=== PATIENT | male | born 1955 | race Caucasian/White ===

== ENCOUNTER 2020-11-15 10:06 | Inpatient (IN) | payer OTHER ==
[2020-11-15] MEDS ORDERED: VANCOMYCIN 1 GM in D5W (PRE-DOCKED) 1,000 MG/250 ML IVPB ONE (11:50)
[2020-11-15] MEDS ORDERED: PIPERACILLIN/TAZOB 4.5 GM 4.5 GM in DEXTROSE 5%-WATER 100 ML IVPB ONE (11:50)
[2020-11-15] MEDS ORDERED: PIPERACILLIN/TAZOB 4.5 GM 4.5 GM/100 ML BAG IVPB ONE (11:54)
[2020-11-15] MEDS ORDERED: VANCOMYCIN 1 GRAM (PRE-DOCKED) 1,000 MG/250 ML BAG IVPB ONE (11:54)
[2020-11-15 11:57] LABS: BASO % 0.9 % (0-2.0); EOS % 1.4 % (0-4.5); HEMATOCRIT 33.3 % (35.4-49); HEMOGLOBIN 10.4 GM/dL (11.7-16.9); LYMPH % 6.9 % (8-40); MCH 20.9 pg (25.7-33.7); MCHC 31.4 g/dl (32.0-35.9); MEAN CELL VOLUME 66.5 fl (80-96); MEAN PLT VOLUME 8.5 fl (7.5-11.1); MONO % 10.8 % (3.8-10.2); PLATELET COUNT 165 K/MM3 (134-434); RDW 21.5 % (11.9-15.9); WHITE BLOOD COUNT 4.7 K/mm3 (4.0-10.0)
[2020-11-15 12:02] LABS: INR 1.24 (0.83-1.09); PROTHROMBIN TIME (PATIENT) 15.2 SEC (9.7-13.0)
[2020-11-15 12:17] LABS: CHLORIDE 99 mmol/L (98-107); SODIUM 134 mmol/L (136-145)
[2020-11-15 12:19] LABS: BLOOD UREA NITROGEN 20.7 mg/dL (7-18); CALCIUM 9.4 mg/dL (8.5-10.1)
[2020-11-15 12:20] LABS: ALBUMIN 2.8 g/dl (3.4-5.0); CO2 30 mmol/L (21-32); GLUCOSE,RANDOM 106 mg/dL (74-106)
[2020-11-15 12:23] LABS: SGOT/AST 96 U/L (15-37); SGPT/ALT 26 U/L (13-61)
[2020-11-15 12:24] LABS: CREATININE 0.9 mg/dL (0.55-1.3)
[2020-11-15 12:25] LABS: BILIRUBIN,TOTAL 0.4 mg/dL (0.2-1); TOT PROT 8.2 g/dl (6.4-8.2)
[2020-11-15 12:26] LABS: ALK PHOS 217 U/L (45-117)
[2020-11-15 12:47] LABS: ANION GAP 5 MMOL/L (8-16)
[2020-11-15 12:59] LABS: ANISOCYTOSIS 1+; MACROCYTOSIS 1+; OVALOCYTE 1+; PLATELET ESTIMATE NORMAL; TEAR DROP CELLS 1+
[2020-11-15] MEDS ORDERED: SODIUM CHLORIDE NASAL SPRAY 44 ML BOTTLE NS PRN (17:31)
[2020-11-15] MEDS ORDERED: oxyCODONE HCL 10 MG SUSTAINED ACTING TABLET PO PRN (17:31)
[2020-11-15] MEDS ORDERED: HEPARIN NA (PORCINE) 5,000 UNITS/ML 1ML VIAL ONE (18:37)
[2020-11-15] MEDS ORDERED: PIPERACILLIN/TAZOB 3.375 GM 3.375 GM/50 ML BAG IVPB ONE (18:38)
[2020-11-15] MEDS: PIPERACILLIN/TAZOB 3.375 GM 3.375 GM in DEXTROSE 5%-WATER - 50 ML IVPB SCH (18:46)
[2020-11-15] MEDS: HEPARIN NA (PORCINE) 5,000 UNITS/ML 1ML VIAL SQ SCH ×2 (18:46→22:14)
[2020-11-15] MEDS ORDERED: oxyCODONE HCL 10 MG SUSTAINED ACTING TABLET ONE (18:47)
[2020-11-15] MEDS: LENVATINIB MESYLATE PO SCH (21:15)
[2020-11-15] MEDS: GABAPENTIN 300 MG CAPSULE PO SCH (22:14)
[2020-11-15] MEDS: FUROSEMIDE 20 MG TABLET (FP) PO SCH (22:14)
[2020-11-15] MEDS: ATORVASTATIN CA 10 MG TABLET (FP) PO SCH (22:14)
[2020-11-15] MEDS ORDERED: morphine SO4 SUSTAINED ACTING 30 MG TABLET.SA PO PRN (22:20)
[2020-11-15 22:29] VITALS: BMI 28.3
[2020-11-15] MEDS: morphine SO4 SUSTAINED ACTING 30 MG TABLET.SA PO SCH (23:37)
[2020-11-16] MEDS ORDERED: PT OWN MED DRAWER 7, Y5N ONE (00:42)
[2020-11-16] MEDS: oxyCODONE HCL 5 MG TABLET PO PRN ×4 (01:09→19:57)
[2020-11-16] MEDS ORDERED: DEXTROSE 5%-WATER - 50 ML IVPB ONE ×4 (01:23→18:33)
[2020-11-16] MEDS ORDERED: PIPERACILLIN/TAZOBACTAM 3.375 GM VIAL IVPB ONE ×2 (01:23→10:39)
[2020-11-16] MEDS: PIPERACILLIN/TAZOB 3.375 GM 3.375 GM in DEXTROSE 5%-WATER - 50 ML IVPB SCH ×2 (01:53→10:42)
[2020-11-16] MEDS: GABAPENTIN 300 MG CAPSULE PO SCH ×3 (06:20→22:33)
[2020-11-16] MEDS: HEPARIN NA (PORCINE) 5,000 UNITS/ML 1ML VIAL SQ SCH ×3 (06:20→22:33)
[2020-11-16] MEDS: morphine SO4 SUSTAINED ACTING 30 MG TABLET.SA PO SCH ×2 (06:20→14:02)
[2020-11-16 08:35] LABS: BASO % 1.5 % (0-2.0); EOS % 2.8 % (0-4.5); HEMATOCRIT 33.5 % (35.4-49); HEMOGLOBIN 10.5 GM/dL (11.7-16.9); MCH 20.8 pg (25.7-33.7); MCHC 31.5 g/dl (32.0-35.9); MEAN CELL VOLUME 66.1 fl (80-96); MONO % 13.2 % (3.8-10.2); NEUT % 67.5 % (42.8-82.8); PLATELET COUNT 153 K/MM3 (134-434); RBC 5.06 M/mm3 (4.00-5.60); RDW 21.3 % (11.9-15.9); WHITE BLOOD COUNT 4.2 K/mm3 (4.0-10.0)
[2020-11-16 09:07] LABS: ALBUMIN 2.9 g/dl (3.4-5.0); BLOOD UREA NITROGEN 20.2 mg/dL (7-18); CALCIUM 9.2 mg/dL (8.5-10.1); MAGNESIUM 2.2 mg/dL (1.8-2.4)
[2020-11-16 09:12] LABS: BILIRUBIN,TOTAL 0.6 mg/dL (0.2-1); TOT PROT 8.3 g/dl (6.4-8.2)
[2020-11-16] MEDS ORDERED: ACETAMINOPHEN 325 MG TABLET (FP) PO PRN (09:14)
[2020-11-16] MEDS: metoPROLOL SUCCINATE 25 MG TAB.SR.24H (FP) PO SCH (10:43)
[2020-11-16] MEDS: FUROSEMIDE 20 MG TABLET (FP) PO SCH ×2 (10:43→22:33)
[2020-11-16] MEDS: ASPIRIN COATED 81 MG TABLET.EC PO SCH (10:43)
[2020-11-16] MEDS: LISINOPRIL 20 MG TABLET PO SCH (10:43)
[2020-11-16 11:34] LABS: ERYTHROCYTE SEDIMENTATION RATE 46 mm/hr (0-20)
[2020-11-16] MEDS ORDERED: ceFAZolin SODIUM 1 GM VIAL ONE ×2 (13:59→18:33)
[2020-11-16] MEDS: CEFAZOLIN 1 GM in DEXTROSE 5%-WATER - 1 GM/50 ML IVPB IVPB SCH ×2 (14:01→18:43)
[2020-11-16] MEDS: INSULIN SLIDING SCALE (NOVOLOG) 1 VIAL SQ SCH (16:57)
[2020-11-16] MEDS: INSULIN (NOVOLOG MIX 70/30) 100 UNITS/ML MDV SQ SCH (16:58)
[2020-11-16] MEDS ORDERED: PIPERACILLIN/TAZOB 3.375 GM 3.375 GM in DEXTROSE 5%-WATER - 50 ML IVPB SCH (18:00)
[2020-11-16] MEDS ORDERED: PNEUMOC 13-VAL CONJ-DIP CRM/PF 0.5 ML DISP.SYRIN IM ONE (19:00)
[2020-11-16] MEDS: LENVATINIB MESYLATE PO SCH (19:57)
[2020-11-16] MEDS ORDERED: morphine SO4 SUSTAINED ACTING 100 MG TABLET.SA PO SCH ×2 (22:00)
[2020-11-16] MEDS: ATORVASTATIN CA 10 MG TABLET (FP) PO SCH (22:33)
[2020-11-16] MEDS: morphine SO4 SUSTAINED ACTING 100 MG TABLET.SA PO SCH (22:34)
[2020-11-17] MEDS ORDERED: ceFAZolin SODIUM 1 GM VIAL ONE ×3 (02:20→17:31)
[2020-11-17] MEDS ORDERED: DEXTROSE 5%-WATER - 50 ML IVPB ONE ×3 (02:20→17:32)
[2020-11-17] MEDS: CEFAZOLIN 1 GM in DEXTROSE 5%-WATER - 1 GM/50 ML IVPB IVPB SCH ×3 (02:44→18:03)
[2020-11-17] MEDS ORDERED: INSULIN (NOVOLOG MIX 70/30) 100 UNITS/ML MDV SQ ONE ×2 (05:57→06:43)
[2020-11-17] MEDS: GABAPENTIN 300 MG CAPSULE PO SCH ×3 (06:18→22:00)
[2020-11-17] MEDS: morphine SO4 SUSTAINED ACTING 100 MG TABLET.SA PO SCH ×3 (06:19→22:04)
[2020-11-17] MEDS: HEPARIN NA (PORCINE) 5,000 UNITS/ML 1ML VIAL SQ SCH ×3 (06:20→22:05)
[2020-11-17] MEDS: INSULIN (NOVOLOG MIX 70/30) 100 UNITS/ML MDV SQ SCH ×2 (06:21→18:00)
[2020-11-17] MEDS: INSULIN SLIDING SCALE (NOVOLOG) 1 VIAL SQ SCH ×3 (06:21→16:28)
[2020-11-17 09:37] LABS: BASO % 1.5 % (0-2.0); EOS % 2.4 % (0-4.5); HEMATOCRIT 28.8 % (35.4-49); HEMOGLOBIN 9.1 GM/dL (11.7-16.9); LYMPH % 13.6 % (8-40); MCH 20.8 pg (25.7-33.7); MCHC 31.5 g/dl (32.0-35.9); MEAN CELL VOLUME 65.9 fl (80-96); MEAN PLT VOLUME 8.4 fl (7.5-11.1); MONO % 13.5 % (3.8-10.2); PLATELET COUNT 120 K/MM3 (134-434); RBC 4.37 M/mm3 (4.00-5.60); RDW 21.8 % (11.9-15.9)
[2020-11-17 10:08] LABS: CALCIUM 8.7 mg/dL (8.5-10.1)
[2020-11-17 10:10] LABS: ALBUMIN 2.5 g/dl (3.4-5.0); BLOOD UREA NITROGEN 22.1 mg/dL (7-18)
[2020-11-17] MEDS: ASPIRIN COATED 81 MG TABLET.EC PO SCH (10:12)
[2020-11-17] MEDS: FUROSEMIDE 20 MG TABLET (FP) PO SCH ×2 (10:12→22:05)
[2020-11-17 10:13] LABS: BILIRUBIN,TOTAL 0.5 mg/dL (0.2-1); CREATININE 0.9 mg/dL (0.55-1.3)
[2020-11-17] MEDS: metoPROLOL SUCCINATE 25 MG TAB.SR.24H (FP) PO SCH (10:13)
[2020-11-17] MEDS: LISINOPRIL 20 MG TABLET PO SCH (10:13)
[2020-11-17 10:15] LABS: TOT PROT 7.1 g/dl (6.4-8.2)
[2020-11-17] MEDS: oxyCODONE HCL 5 MG TABLET PO PRN ×2 (10:15→16:23)
[2020-11-17] MEDS: LENVATINIB MESYLATE PO SCH (19:08)
[2020-11-17] MEDS: ATORVASTATIN CA 10 MG TABLET (FP) PO SCH (22:00)
[2020-11-18] MEDS ORDERED: DEXTROSE 5%-WATER - 50 ML IVPB ONE ×3 (01:04→17:27)
[2020-11-18] MEDS ORDERED: ceFAZolin SODIUM 1 GM VIAL ONE ×3 (01:04→17:27)
[2020-11-18] MEDS: oxyCODONE HCL 5 MG TABLET PO PRN ×3 (01:06→16:26)
[2020-11-18] MEDS: CEFAZOLIN 1 GM in DEXTROSE 5%-WATER - 1 GM/50 ML IVPB IVPB SCH ×3 (01:11→17:29)
[2020-11-18] MEDS: morphine SO4 SUSTAINED ACTING 100 MG TABLET.SA PO SCH ×3 (05:57→21:54)
[2020-11-18] MEDS: HEPARIN NA (PORCINE) 5,000 UNITS/ML 1ML VIAL SQ SCH ×3 (05:57→21:54)
[2020-11-18] MEDS: GABAPENTIN 300 MG CAPSULE PO SCH ×3 (05:57→21:53)
[2020-11-18] MEDS: INSULIN (NOVOLOG MIX 70/30) 100 UNITS/ML MDV SQ SCH ×2 (06:04→17:13)
[2020-11-18] MEDS: INSULIN SLIDING SCALE (NOVOLOG) 1 VIAL SQ SCH ×3 (06:07→17:13)
[2020-11-18] MEDS: metoPROLOL SUCCINATE 25 MG TAB.SR.24H (FP) PO SCH (09:32)
[2020-11-18] MEDS: FUROSEMIDE 20 MG TABLET (FP) PO SCH ×2 (09:32→21:54)
[2020-11-18] MEDS: LISINOPRIL 20 MG TABLET PO SCH (09:32)
[2020-11-18] MEDS: ASPIRIN COATED 81 MG TABLET.EC PO SCH (09:32)
[2020-11-18 13:13] LABS: BASO % 1.2 % (0-2.0); EOS % 1.8 % (0-4.5); HEMATOCRIT 31.1 % (35.4-49); HEMOGLOBIN 9.7 GM/dL (11.7-16.9); LYMPH % 11.9 % (8-40); MCH 20.6 pg (25.7-33.7); MCHC 31.2 g/dl (32.0-35.9); MEAN CELL VOLUME 66.1 fl (80-96); MEAN PLT VOLUME 8.4 fl (7.5-11.1); MONO % 14.2 % (3.8-10.2); NEUT % 70.9 % (42.8-82.8); PLATELET COUNT 135 K/MM3 (134-434); RDW 21.8 % (11.9-15.9); WHITE BLOOD COUNT 3.6 K/mm3 (4.0-10.0)
[2020-11-18 13:35] LABS: CALCIUM 8.4 mg/dL (8.5-10.1)
[2020-11-18 13:36] LABS: ALBUMIN 2.7 g/dl (3.4-5.0)
[2020-11-18 13:37] LABS: ANISOCYTOSIS 3+; MACROCYTOSIS 0; PLATELET ESTIMATE DECREASED; TEAR DROP CELLS 1+
[2020-11-18 13:38] LABS: BLOOD UREA NITROGEN 21.5 mg/dL (7-18)
[2020-11-18 13:39] LABS: CREATININE 0.9 mg/dL (0.55-1.3)
[2020-11-18 13:42] LABS: BILIRUBIN,TOTAL 0.5 mg/dL (0.2-1); TOT PROT 7.7 g/dl (6.4-8.2)
[2020-11-18] MEDS: LENVATINIB MESYLATE PO SCH (18:09)
[2020-11-18] MEDS: ATORVASTATIN CA 10 MG TABLET (FP) PO SCH (21:54)
[2020-11-19] MEDS ORDERED: ceFAZolin SODIUM 1 GM VIAL ONE ×2 (01:32→10:14)
[2020-11-19] MEDS ORDERED: DEXTROSE 5%-WATER - 50 ML IVPB ONE ×2 (01:32→10:14)
[2020-11-19] MEDS: CEFAZOLIN 1 GM in DEXTROSE 5%-WATER - 1 GM/50 ML IVPB IVPB SCH ×2 (01:55→10:19)
[2020-11-19] MEDS: HEPARIN NA (PORCINE) 5,000 UNITS/ML 1ML VIAL SQ SCH ×3 (06:20→21:01)
[2020-11-19] MEDS: morphine SO4 SUSTAINED ACTING 100 MG TABLET.SA PO SCH ×3 (06:20→22:06)
[2020-11-19] MEDS: GABAPENTIN 300 MG CAPSULE PO SCH ×3 (06:20→21:02)
[2020-11-19] MEDS: INSULIN (NOVOLOG MIX 70/30) 100 UNITS/ML MDV SQ SCH ×2 (06:21→17:22)
[2020-11-19] MEDS: INSULIN SLIDING SCALE (NOVOLOG) 1 VIAL SQ SCH ×3 (06:21→17:13)
[2020-11-19 08:11] LABS: BASO % 1.3 % (0-2.0); EOS % 2.6 % (0-4.5); HEMATOCRIT 29.4 % (35.4-49); HEMOGLOBIN 9.2 GM/dL (11.7-16.9); LYMPH % 16.1 % (8-40); MCH 20.8 pg (25.7-33.7); MCHC 31.4 g/dl (32.0-35.9); MEAN CELL VOLUME 66.2 fl (80-96); MONO % 15.2 % (3.8-10.2); NEUT % 64.8 % (42.8-82.8); PLATELET COUNT 114 K/MM3 (134-434); RBC 4.44 M/mm3 (4.00-5.60); RDW 21.7 % (11.9-15.9); WHITE BLOOD COUNT 3.1 K/mm3 (4.0-10.0)
[2020-11-19 08:12] LABS: ALBUMIN 2.5 g/dl (3.4-5.0); BLOOD UREA NITROGEN 19.4 mg/dL (7-18); CALCIUM 8.2 mg/dL (8.5-10.1)
[2020-11-19 08:15] LABS: CREATININE 0.8 mg/dL (0.55-1.3)
[2020-11-19 08:16] LABS: BILIRUBIN,TOTAL 0.6 mg/dL (0.2-1)
[2020-11-19 08:17] LABS: TOT PROT 7.5 g/dl (6.4-8.2)
[2020-11-19] MEDS: ASPIRIN COATED 81 MG TABLET.EC PO SCH (10:19)
[2020-11-19] MEDS: metoPROLOL SUCCINATE 25 MG TAB.SR.24H (FP) PO SCH (10:19)
[2020-11-19] MEDS: LISINOPRIL 20 MG TABLET PO SCH (10:19)
[2020-11-19] MEDS: FUROSEMIDE 20 MG TABLET (FP) PO SCH ×2 (10:19→21:02)
[2020-11-19] MEDS: VANCOMYCIN 1 GRAM (PRE-DOCKED) 1,000 MG/250 ML BAG IVPB SCH (14:41)
[2020-11-19] MEDS: LENVATINIB MESYLATE PO SCH (19:21)
[2020-11-19] MEDS: oxyCODONE HCL 5 MG TABLET PO PRN (19:21)
[2020-11-19] MEDS: ATORVASTATIN CA 10 MG TABLET (FP) PO SCH (21:02)
[2020-11-20] MEDS: VANCOMYCIN 1 GRAM (PRE-DOCKED) 1,000 MG/250 ML BAG IVPB SCH (01:04)
[2020-11-20] MEDS: GABAPENTIN 300 MG CAPSULE PO SCH ×3 (05:47→22:18)
[2020-11-20] MEDS: morphine SO4 SUSTAINED ACTING 100 MG TABLET.SA PO SCH ×3 (05:48→22:17)
[2020-11-20] MEDS: HEPARIN NA (PORCINE) 5,000 UNITS/ML 1ML VIAL SQ SCH ×3 (05:48→22:19)
[2020-11-20 07:45] LABS: HEMATOCRIT 29.2 % (35.4-49); HEMOGLOBIN 9.1 GM/dL (11.7-16.9); MCH 20.7 pg (25.7-33.7); MCHC 31.2 g/dl (32.0-35.9); MEAN CELL VOLUME 66.5 fl (80-96); MEAN PLT VOLUME 9.1 fl (7.5-11.1); PLATELET COUNT 99 K/MM3 (134-434); RBC 4.39 M/mm3 (4.00-5.60); RDW 21.2 % (11.9-15.9); WHITE BLOOD COUNT 2.9 K/mm3 (4.0-10.0)
[2020-11-20 08:12] LABS: ALBUMIN 2.5 g/dl (3.4-5.0); BLOOD UREA NITROGEN 18.9 mg/dL (7-18)
[2020-11-20 08:15] LABS: CREATININE 0.8 mg/dL (0.55-1.3)
[2020-11-20 08:16] LABS: BILIRUBIN,TOTAL 0.8 mg/dL (0.2-1)
[2020-11-20 08:17] LABS: TOT PROT 7.2 g/dl (6.4-8.2)
[2020-11-20] MEDS: LISINOPRIL 20 MG TABLET PO SCH (10:16)
[2020-11-20] MEDS: ASPIRIN COATED 81 MG TABLET.EC PO SCH (10:16)
[2020-11-20] MEDS: FUROSEMIDE 20 MG TABLET (FP) PO SCH ×2 (10:16→22:18)
[2020-11-20] MEDS: metoPROLOL SUCCINATE 25 MG TAB.SR.24H (FP) PO SCH (10:16)
[2020-11-20] MEDS: INSULIN SLIDING SCALE (NOVOLOG) 1 VIAL SQ SCH ×3 (10:25→16:47)
[2020-11-20] MEDS: INSULIN (NOVOLOG MIX 70/30) 100 UNITS/ML MDV SQ SCH ×2 (11:11→16:51)
[2020-11-20] MEDS: oxyCODONE HCL 5 MG TABLET PO PRN ×2 (12:44→20:10)
[2020-11-20] MEDS: LENVATINIB MESYLATE PO SCH (18:16)
[2020-11-20] MEDS: ATORVASTATIN CA 10 MG TABLET (FP) PO SCH (22:18)
[2020-11-21] MEDS: HEPARIN NA (PORCINE) 5,000 UNITS/ML 1ML VIAL SQ SCH ×3 (06:22→21:01)
[2020-11-21] MEDS: GABAPENTIN 300 MG CAPSULE PO SCH ×3 (06:23→21:01)
[2020-11-21] MEDS: morphine SO4 SUSTAINED ACTING 100 MG TABLET.SA PO SCH ×3 (06:23→22:21)
[2020-11-21] MEDS: INSULIN SLIDING SCALE (NOVOLOG) 1 VIAL SQ SCH ×3 (06:24→15:46)
[2020-11-21] MEDS: INSULIN (NOVOLOG MIX 70/30) 100 UNITS/ML MDV SQ SCH ×3 (06:25→17:06)
[2020-11-21 08:05] LABS: BASO % 1.3 % (0-2.0); EOS % 2.5 % (0-4.5); HEMATOCRIT 31.3 % (35.4-49); HEMOGLOBIN 9.7 GM/dL (11.7-16.9); LYMPH % 16.2 % (8-40); MCH 20.6 pg (25.7-33.7); MCHC 30.9 g/dl (32.0-35.9); MEAN CELL VOLUME 66.6 fl (80-96); MONO % 13.4 % (3.8-10.2); NEUT % 66.6 % (42.8-82.8); PLATELET COUNT 116 K/MM3 (134-434); RDW 21.4 % (11.9-15.9); WHITE BLOOD COUNT 3.4 K/mm3 (4.0-10.0)
[2020-11-21 08:26] LABS: BLOOD UREA NITROGEN 18.8 mg/dL (7-18); CALCIUM 8.1 mg/dL (8.5-10.1)
[2020-11-21 08:27] LABS: ALBUMIN 2.6 g/dl (3.4-5.0)
[2020-11-21 08:29] LABS: CREATININE 0.8 mg/dL (0.55-1.3)
[2020-11-21 08:31] LABS: BILIRUBIN,TOTAL 0.7 mg/dL (0.2-1); TOT PROT 7.5 g/dl (6.4-8.2)
[2020-11-21] MEDS: ASPIRIN COATED 81 MG TABLET.EC PO SCH (09:47)
[2020-11-21] MEDS: FUROSEMIDE 20 MG TABLET (FP) PO SCH ×2 (09:47→21:01)
[2020-11-21] MEDS: metoPROLOL SUCCINATE 25 MG TAB.SR.24H (FP) PO SCH (09:47)
[2020-11-21] MEDS: LISINOPRIL 20 MG TABLET PO SCH (09:47)
[2020-11-21] MEDS: oxyCODONE HCL 5 MG TABLET PO PRN (18:14)
[2020-11-21] MEDS: LENVATINIB MESYLATE PO SCH (19:14)
[2020-11-21] MEDS: ATORVASTATIN CA 10 MG TABLET (FP) PO SCH (21:01)
[2020-11-22] MEDS: GABAPENTIN 300 MG CAPSULE PO SCH ×3 (06:05→22:34)
[2020-11-22] MEDS: morphine SO4 SUSTAINED ACTING 100 MG TABLET.SA PO SCH ×3 (06:05→22:35)
[2020-11-22] MEDS: HEPARIN NA (PORCINE) 5,000 UNITS/ML 1ML VIAL SQ SCH ×2 (06:05→13:47)
[2020-11-22] MEDS: INSULIN SLIDING SCALE (NOVOLOG) 1 VIAL SQ SCH ×3 (06:07→16:50)
[2020-11-22] MEDS: INSULIN (NOVOLOG MIX 70/30) 100 UNITS/ML MDV SQ SCH ×2 (06:13→17:11)
[2020-11-22] MEDS ORDERED: PT OWN MED DRAWER 7, Y5N ONE (09:25)
[2020-11-22] MEDS: FUROSEMIDE 20 MG TABLET (FP) PO SCH ×2 (09:36→22:34)
[2020-11-22] MEDS: metoPROLOL SUCCINATE 25 MG TAB.SR.24H (FP) PO SCH (09:36)
[2020-11-22] MEDS: LISINOPRIL 20 MG TABLET PO SCH (09:36)
[2020-11-22] MEDS: ASPIRIN COATED 81 MG TABLET.EC PO SCH (09:36)
[2020-11-22] MEDS: oxyCODONE HCL 5 MG TABLET PO PRN (09:37)
[2020-11-22] MEDS: LENVATINIB MESYLATE PO SCH (18:43)
[2020-11-22] MEDS ORDERED: oxyCODONE HCL 5 MG TABLET PO PRN (18:58)
[2020-11-22] MEDS: ATORVASTATIN CA 10 MG TABLET (FP) PO SCH (22:34)
[2020-11-23] MEDS: morphine SO4 SUSTAINED ACTING 100 MG TABLET.SA PO SCH (05:40)
[2020-11-23] MEDS: GABAPENTIN 300 MG CAPSULE PO SCH (05:41)
[2020-11-23] MEDS ORDERED: INSULIN (NOVOLOG MIX 70/30) 100 UNITS/ML MDV SQ ONE (06:23)
[2020-11-23] MEDS ORDERED: INSULIN (NOVOLOG) ASPART 100 UNITS/ML 10ML VIAL ONE (06:23)
[2020-11-23] MEDS: INSULIN SLIDING SCALE (NOVOLOG) 1 VIAL SQ SCH (06:29)
[2020-11-23] MEDS: INSULIN (NOVOLOG MIX 70/30) 100 UNITS/ML MDV SQ SCH (06:29)
[2020-11-23] MEDS ORDERED: PT OWN MED DRAWER 7, Y5N ONE (08:40)
[2020-11-23] MEDS: metoPROLOL SUCCINATE 25 MG TAB.SR.24H (FP) PO SCH (08:42)
[2020-11-23] MEDS: LISINOPRIL 20 MG TABLET PO SCH (08:42)
[2020-11-23] MEDS: ASPIRIN COATED 81 MG TABLET.EC PO SCH (08:42)
[2020-11-23] MEDS: FUROSEMIDE 20 MG TABLET (FP) PO SCH (08:42)
[2020-11-23 16:33] VITALS: BP 145/67; PULSE 87; TEMP 98.5
== END 2020-11-23 11:20 | DRG 300 ==
LOC: JER 10:06 → JERBED 12:58 → J5S 21:29 → J7W 11-18 18:41
PROVIDERS: ADMIT Family Medicine; ATTEND Internal Medicine
DX: I87.2 Venous insufficiency (chronic) (peripheral) (principal); C22.7 Other specified carcinomas of liver; C79.51 Secondary malignant neoplasm of bone; L97.519 Non-pressure chronic ulcer of other part of right foot with unspecified severity; L97.529 Non-pressure chronic ulcer of other part of left foot with unspecified severity; E11.9 Type 2 diabetes mellitus without complications; I10 Essential (primary) hypertension; E87.5 Hyperkalemia; Z79.84 Long term (current) use of oral hypoglycemic drugs; I45.10 Unspecified right bundle-branch block; E78.5 Hyperlipidemia, unspecified; R74.01 Elevation of levels of liver transaminase levels; K74.60 Unspecified cirrhosis of liver; D70.9 Neutropenia, unspecified; G89.29 Other chronic pain; R04.0 Epistaxis; B95.62 Methicillin resistant Staphylococcus aureus infection as the cause of diseases classified elsewhere
CPT/HCPCS: 36415; 71045-TC-FY; 73630-TC-LT; 80053; 82550; 82962; 83036; 83735; 84132; 84443; 84484; 85025; 85027; 85610; 85651; 86140; 87040; 87070; 87186; 87205; 93005; 93010; 97116-GP; 97161-GP; 99285-25; C9803; J1644; U0003; U0005